=== PATIENT | female | born 1990 | race Caucasian/White ===

== ENCOUNTER 2024-08-14 07:40 | Emergency (ER) | payer OTHER ==
[2024-08-14] MEDS ORDERED: Ondansetron ODT 4 MG TAB ONE (07:56)
[2024-08-14] MEDS ORDERED: Glucagon 1 MG/ML KIT ONE ×2 (07:56→08:56)
[2024-08-14] MEDS ORDERED: Ketorolac Tromethamine 30 MG (1 mL) VIAL ONE (08:56)
== END 2024-08-14 12:47 ==
LOC: BURERS 07:40
DX: T18.128A Food in esophagus causing other injury, initial encounter (principal)
CPT/HCPCS: 96372; 99283; J1611; J1885; Q0162

== ENCOUNTER 2025-06-08 12:23 | Outpatient (CLI) | payer OTHER | END 2025-06-08 12:24 | disposition home or self-care (01) | LOC: BURRAD 12:23 | PROVIDERS: ATTEND Nurse Practitioner Family | DX: M25.532 Pain in left wrist (principal) ==